=== PATIENT | male | born 1995 | race Caucasian/White ===

== ENCOUNTER 2017-09-02 02:21 | Emergency (ER) | payer OTHER ==
[~2017-09-02] VITALS: Ht 182.9 cm; Wt 68.2 kg
[2017-09-02] MEDS ORDERED: ALBUTEROL SULFATE 2.5 MG/0.5 ML INH NEB SOLN INH ONE (03:30)
[2017-09-02] MEDS ORDERED: IPRATROPIUM 0.5MG/ALBUTEROL 2.5MG INH SOL UD 3ML (DUONEB)(J7620) NEB PRN (04:00)
[2017-09-02] MEDS ORDERED: ALBU17IN2 INH (04:57)
[2017-09-02] MEDS ORDERED: DOXY100C37 PO (04:57)
[2017-09-02 05:05] VITALS: BP 124/68
--- NOTE | 2017-09-02 08:04 | REP ---
Clinical: cough. Comparison: none. Technique: PA and lateral. Findings: The mediastinum and cardiac silhouette are normal. The lung mehta are clear and without acute consolidation, effusion, or pneumothorax. The skeletal structures are intact and normal. Impression: 1. No acute cardiopulmonary process. Signed by Raul Ayala MD 09/02/2017 07:56 A
== END 2017-09-02 05:15 | disposition home or self-care (01) ==
LOC: M ED 02:21
DX: J20.9 Acute bronchitis, unspecified (principal)

== ENCOUNTER 2017-10-07 15:34 | Emergency (ER) | payer OTHER ==
[2017-10-07] MEDS: IPRATROPIUM 0.5MG/ALBUTEROL 2.5MG INH SOL UD 3ML (DUONEB)(J7620) NEB ×2 (17:02→17:14)
[2017-10-07] MEDS: predniSONE 20 MG TAB PO (17:14)
== END 2017-10-07 18:08 | disposition home or self-care (01) ==
LOC: M ED 15:34
DX: J98.01 Acute bronchospasm (principal)
CPT/HCPCS: 94640

== ENCOUNTER → 2018-12-16 | Outpatient (CLI) | payer OTHER ==
[~2018-12-16] MED LIST: ALBU17IN2 INH; BENA25CA4 PO; DOXY100C37 PO; FLON1SPR; PRED20TA PO
--- NOTE | 2018-12-16 14:13 | REP ---
Three-phase bone scan of the knees and calves. History: Pain in the legs. History of normal radiographs. Technique: 21.9 mCi technetium 99m MDP is injected and standard three-phase imaging was acquired. Scintigraphic findings: Anterior and posterior flow images are normal. Blood pool images show no abnormality. Delayed scan images demonstrate a pattern of slightly asymmetric but bilateral abnormal linear uptake in the proximal fibular cortex medially on each side. This is compatible with stress periostitis. No establish stress fracture is seen. No abnormal tibial cortical uptake is seen. Impression: Bilateral proximal fibular diaphyseal stress periostitis. No established stress fracture seen. Electronically Signed by Madi Fox MD 12/16/2018 05:36 P
== END ==
LOC: M RAD 09:22
PROVIDERS: ATTEND Physician Assistant
DX: M89.8X6 Other specified disorders of bone, lower leg (principal); M79.661 Pain in right lower leg
CPT/HCPCS: 78315; A9503

== ENCOUNTER → 2020-06-09 | Outpatient (REF) | payer OTHER ==
[~2020-06-09] MED LIST changes: -ALBU17IN2 INH; +PROV108A INH
== END ==
LOC: M SMT 13:26
PROVIDERS: ATTEND Urology
DX: Z30.2 Encounter for sterilization (principal)

== ENCOUNTER → 2020-10-20 | Outpatient (REF) | payer OTHER ==
[2020-10-20 10:27] LABS: SEMEN APPEARANCE OPAQUE (OPAQUE); SEMEN VISCOSITY LIQUID (LIQUID); SEMEN VOLUME 3.2 ml (2.0-5.0); WBC CONCENTRATION <=1 M/ml (<=1 M/ml)
== END ==
LOC: M SMT 09:17
PROVIDERS: ATTEND Urology
DX: Z98.52 Vasectomy status (principal)